=== PATIENT | male | born 1995 | race Caucasian/White ===

== ENCOUNTER → 2019-06-02 14:05 | Outpatient (CLI) | payer OTHER, SELFPAY ==
--- NOTE | 2019-06-02 14:07 | DI.RAD.S_ITS ---
PROCEDURE: XR CERVICAL SPINE 2V OR 3V INDICATIONS: neck pain TECHNIQUE: 3 view(s) of the cervical spine were acquired. COMPARISON: None. FINDINGS: Bones: No fractures or dislocations to the T1 level. The lateral masses of C1 appear intact on the odontoid view. No suspicious bony lesions. Soft tissues: No prevertebral soft tissue swelling. IMPRESSION: Normal for age, no neck pain source is found. Dictated by: Clint Monaco M.D. on 06/02/2019 at 15:48 Approved by: Clint Monaco M.D. on 06/02/2019 at 15:49
--- NOTE | 2019-06-02 14:07 | DI.RAD.S_ITS ---
PROCEDURE: XR SHOULDER RT MIN 2V INDICATIONS: shoulder pain TECHNIQUE: 3 views of the shoulder were acquired. COMPARISON: None. FINDINGS: Bones: No fractures or dislocations. No suspicious bony lesions. Visualized ribs appear intact. Soft tissues: No suspicious soft tissue calcifications. IMPRESSION: No trauma found. Source of shoulder pain is not seen. Dictated by: Clint Monaco M.D. on 06/02/2019 at 15:49 Approved by: Clint Monaco M.D. on 06/02/2019 at 15:49
== END ==
PROVIDERS: PCP Family Medicine; Referring Provider Physical Medicine & Rehabilitation; Visit Provider Physical Medicine & Rehabilitation
DX: M54.2 Cervicalgia (principal); M25.511 Pain in right shoulder; G89.29 Other chronic pain
CPT/HCPCS: 72040; 73030

== ENCOUNTER 2019-07-09 17:53 | Emergency (ER) | payer OTHER, SELFPAY ==
[2019-07-09 17:56] VITALS: BP 133/61; PULSE 77; RESP 14; TEMP 37.4; O2SAT 100
[2019-07-09 18:44] LABS: Influenza A - CEPHEID Flu A NEGATIVE (NEGATIVE); Influenza B - CEPHEID Flu B NEGATIVE (NEGATIVE)
--- NOTE | 2019-07-09 21:31 | ED_ITS ---
HPI - URI/Sore Throat <NANY Fishman - Last Filed: 07/09/19 21:52> General Chief Complaint: Upper Respiratory Symptoms Stated Complaint: sore throat, cough, cold sweats Time Seen by Provider: 07/09/19 19:59 Source: patient Mode of arrival: Ambulatory Limitations: no limitations History of Present Illness HPI Narrative: This is a 24 year male, currently vapes, presents to ED with chu leal complain of sore throat when he woke up this morning which is getting worse with cough, chills, nausea and nasal congestion. Patient denies recent ill exposure, foreign travel, fever, dyspnea, chest pain or short of breath. Patient reports he can hydrate with sore throat without difficulty. Patient does not have chronic medical conditions at this time. Patient has not tried any [id number] medications for his symptoms before coming into ED. Related Data Previous Rx's Medication Instructions Recorded fluoxetine 40 mg capsule 40 mg PO DAILY #90 cap 06/12/18 fluticasone propionate [Flonase 1 spray NASAL Q12H PRN #9.9 ml 07/09/19 Allergy Relief] pseudoephedrine-guaifenesin 1 tab PO BID PRN #14 tab 07/09/19 [Mucinex D Maximum Strength] Allergies Allergy/AdvReac Type Severity Reaction Status Date / Time cephalexin [CEPHALEXIN] Allergy Mild NAUSEA AND Verified 07/09/19 18:01 VOMITING Sulfa (Sulfonamide Allergy Mild NAUSEA AND Verified 07/09/19 18:01 Antibiotics) VOMITING [SULFA (SULFONAMIDE ANTIBIOTICS)] Review of Systems <NANY Fishman - Last Filed: 07/09/19 21:52> Review of Systems Narrative: General: Denies fever, (+) chills, fatigue, malaise, sweats. HEENT: See HPI Respiratory: Denies dyspnea, (+) cough, wheezing, hemoptysis, sputum. Cardiovascular: Denies chest pain, palpitations, orthopnea, edema. Gastrointestinal: Denies (+) nausea, vomiting, abdominal pain, diarrhea, constipation, melena. : Denies dysuria, frequency, incontinence, hematuria, urinary retention. Musculoskeletal: Denies weakness, joint pain or bony pain. Skin: Denies rash, skin lesions, or other. Neurologic: Denies weakness, headache, numbness, change in speech, confusion, seizures, incoordination. Psychiatric: No concerning psychosocial issues. 12-point review of systems is negative except for those stated above. Patient History <NANY Fishman - Last Filed: 07/09/19 21:52> Medical History Periodic vomiting (Chronic 08/2014) Subscapularis insufficiency (Acute) Winged scapula of right side (Acute) Surgical History No pertinent past surgical history (Acute) Family History Unknown No pertinent family history Social History Smoking Status: Current every day smoker Smoking Status: Current every day smoker alcohol intake frequency: 0-2 drinks per day Exam <NANY Fishman - Last Filed: 07/09/19 21:52> Narrative Exam Narrative: GEN: Alert, oriented x 3, well appearing and nourished, and in no acute distress. Head: Normal cephalic, atraumatic. No scalp or temporal tenderness, palpable mass or rash. EYES: Pupils are equal, round, and reactive to light and accommodation. Extraocular muscles are intact bilaterally. There is no subconjunctival hemorrhage, exudate and sclera non-icteric. ENT: Bilateral auditory canals clear and tympanic membranes clear mildly injected and bulging. Hearing grossly intact. Nose without bleeding, purulent discharge or deviation. Tubinates red and edematous. Facial sinuses nontender to palpate. Mucous membrane moist, no mucosal lesion. Throat without erythema, tonsillar hypertrophy or exudate. Uvula in midline, airway patent. Neck: Trachea in midline. No JVD, non-tender without lymphadenopathy. No masses or thyroid megaly. Supple, non-tender and no meningeal signs. CARDIAC: Normal regular rate and rhythm without murmurs, gallops, or rubs. No chest wall tenderness. No peripheral edema, cyanosis or pallor. Capillary refill is less than 2 seconds. RESPIRATORY: Lungs are clear to auscultate bilaterally. No cough, wheezes, rales, or rhonchi. No stridor, respiratory distress, increase work of breathing, or accessary muscle used. ABD: Abdomen soft, nontender and non-distended. No guarding or rebound tenderness to palpate. Bowel sounds are normal in all 4 quadrants. There is no palpable masses or organomegaly. EXT: Full painless ROM of all extremities with no loss of sensation, strength, effusion or edema. SKIN: Warm, dry, normal color for patient. No erythema, lesions or rash over visible areas. BACK: Nontender without deformity or crepitance. No flank tenderness. NEUROLOGICAL: Alert and oriented to place, time and person. Sensation and motor function intact bilaterally. No facial droops, dysphasia. PSYCHIATRIC: Good judgement and reason, without hallucinations, abnormal affect or abnormal behaviors during the examination. Initial Vital Signs Initial Vital Signs: Vital Signs Temperature 99.4 F 07/09/19 17:56 Pulse Rate 77 07/09/19 17:56 Respiratory Rate 14 07/09/19 17:56 Blood Pressure 133/61 07/09/19 17:56 Pulse Oximetry 100 07/09/19 17:56 <Angel Chan DO - Last Filed: 07/09/19 22:41> Initial Vital Signs Initial Vital Signs: Vital Signs Temperature 99.4 F 07/09/19 17:56 Pulse Rate 77 07/09/19 17:56 Respiratory Rate 14 07/09/19 17:56 Blood Pressure 133/61 07/09/19 17:56 Pulse Oximetry 100 07/09/19 17:56 Scores <NANY Fishman - Last Filed: 07/09/19 21:52> GCS Eleanor coma scale eye opening: Spontaneous [place] coma scale verbal response: Orientated [place] coma scale motor response: Obey commands [place] coma scale total score: 15 Course <NANY Fishman - Last Filed: 07/09/19 21:52> Orders Ordered: ED Orders 07/09/19 18:00 Influenza A & B (PCR) Stat Vital Signs Vital signs: Vital Signs - 8 hr 07/09/19 17:56 Temperature 99.4 F Pulse Rate 77 Respiratory Rate 14 Blood Pressure 133/61 Pulse Oximetry 100 <DO Ulices Briseno Last Filed: 07/09/19 22:41> Orders Ordered: ED Orders 07/09/19 18:00 Influenza A & B (PCR) Stat Vital Signs Vital signs: Vital Signs - 8 hr 07/09/19 17:56 Temperature 99.4 F Pulse Rate 77 Respiratory Rate 14 Blood Pressure 133/61 Pulse Oximetry 100 MDM - URI/Sore Throat <KATIA FishmanP - Last Filed: 07/09/19 21:52> Differential Diagnosis Differential diagnosis: Likely upper respiratory infection, otitis media, viral infection, influenza and pharyngitis Medical Records Attestation: I reviewed the patient's medical records. Lab Data Attestation: I reviewed the patient's lab results. Labs: Lab Results 07/09/19 Range/Units 18:00 Influenza A (RT-PCR) Flu a negative (NEGATIVE) Influenza B (RT-PCR) Flu b negative (NEGATIVE) Point of Care Testing Rapid Strep A Negative MDM Narrative Medical decision making narrative: This is a 24-year-old male who presents to ED with upper respiratory symptoms which started this morning when he woke up. Flu test was negative. Strep throat was negative as well. Patient's lung sounds are clear to auscultate in all lobes without increased work of breathing. Patient has not had close contact with people with recent illness, no foreign travel. He has mild increase in temperature of 99.4? with stable vital signs including 100% room air O2 sat. Patient discharged to home with work off note for 2 days and Mucinex DM and Flonase for his symptoms. Patient advised to hydrate well and rest and utilize good hand/cough hygiene. Return precautions were discussed with patient and patient verbalized understanding and agreement with treatment plan. It <Angel Chan DO - Last Filed: 07/09/19 22:41> Lab Data Labs: Lab Results 07/09/19 Range/Units 18:00 Influenza A (RT-PCR) Flu a negative (NEGATIVE) Influenza B (RT-PCR) Flu b negative (NEGATIVE) Point of Care Testing Rapid Strep A Negative Discharge Plan Departure Patient Disposition: Home Clinical Impression: Upper respiratory infection Qualifiers: URI type: unspecified URI Qualified Code(s): J06.9 - Acute upper respiratory infection, unspecified Discharge Date/Time: 07/09/19 21:20 Instructions: DI for Viral Upper Respiratory Infection -- Adult Activity Restrictions/Additional Instructions: You have been diagnosed with [upper respiratory infection. Flu and strep throat tests were negative. You did not have fever, breathing difficulty. Lung sounds were clear in all lobes and oxygenation was 100% in ED.]. What to do: *Take your medications as directed. Please take [id number] Tylenol and or Motrin as needed for discomfort and fever. Please hydrate well and rest. Good hand/cough hygiene will prevent transmitting illness to others. You can take Flonase and Mucinex for symptoms for congestion and cold. This medication has been transmitted to [facility] in [facility]. You can return to work no fever for 24 ho urs or when you are feeling better. *Follow up with your primary care provider in 2-3 days, call for an appointment. Let them know you were seen in the ED and that we asked you to be seen in follow up. *Return to ED if you have any new, worsening, or concerning symptoms, such as [chest pain, breathing difficulty, unable to tolerate fluids, high fever, or any acute concerns]. Prescriptions: New fluticasone propionate [Flonase Allergy Relief] 50 mcg/actuation spray,suspension 1 spray NASAL Q12H PRN (Reason: nasal congestion) Qty: 9.9 RF: 0 pseudoephedrine-guaifenesin [Mucinex D Maximum Strength] 120-1,200 mg tablet extended release 12 hr 1 tab PO BID PRN (Reason: cold symptoms) Qty: 14 RF: 0 No Action fluoxetine 40 mg capsule 40 mg PO DAILY Qty: 90 RF: 1 Referrals: Blake Vicente MD [Primary Care Provider] - Stand Alone Forms: Work Release Note <Angel Chan DO - Last Filed: 07/09/19 22:41> Sign Out Provider Sign Out Attestation: Dr Chan Co-Sign Statement: I was available for consultation during this patient's emergency department visit. This chart is signed by myself for administrative purposes only. I did not have direct contact with this patient during this visit. They were seen independently by the APC.
== END 2019-07-09 21:20 | disposition home or self-care (01) ==
PROVIDERS: Emergency Medicine; Emergency Provider Nurse Practitioner Family; PCP Family Medicine
DX: J06.9 Acute upper respiratory infection, unspecified (principal)
CPT/HCPCS: 87502; 87880; 99281; 99282

== ENCOUNTER → 2020-11-09 09:00 | Outpatient (CLI) | payer OTHER, SELFPAY | PROVIDERS: PCP Family Medicine; Referring Provider Physical Medicine & Rehabilitation; Visit Provider Physical Medicine & Rehabilitation | DX: M95.8 Other specified acquired deformities of musculoskeletal system (principal); M62.9 Disorder of muscle, unspecified | CPT/HCPCS: 95886; 95909 ==

== ENCOUNTER → 2021-02-15 09:12 | Outpatient (CLI) | payer OTHER, SELFPAY ==
--- NOTE | 2021-02-15 | DI.CT.S_ITS ---
PROCEDURE: CT SINUS SCREEN WO CON INDICATIONS: Chronic pansinusitis TECHNIQUE: Noncontrast 3.0 mm axial images acquired from the frontal sinuses to the mid-sella, with coronal and sagittal reformats. For radiation dose reduction, the following was used: automated exposure control, adjustment of mA and/or kV according to patient size. COMPARISON: None. FINDINGS: Image quality: Excellent. Paranasal sinuses are normally aerated. No mucosal thickening in the paranasal sinuses. Small mucous retention cyst noted in the floor of the left maxillary sinus. No air-fluid levels identified in the paranasal sinuses. The ostiomeatal units are patent bilaterally. No osseous thickening, osseous remodeling or osseous erosive changes. 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 No shaheen bullosa or paradoxical turbinates. Nasal septum is midline. IMPRESSION: No paranasal sinus mucosal thickening or air-fluid levels Dictated by: Andree Patel MD, PhD on 02/15/2021 at 11:13 Approved by: Andree Patel MD, PhD on 02/15/2021 at 11:22
== END ==
PROVIDERS: PCP Family Medicine; Referring Provider Otolaryngology; Visit Provider Otolaryngology
DX: R07.0 Pain in throat (principal); R09.82 Postnasal drip; J32.4 Chronic pansinusitis
CPT/HCPCS: 70486

== ENCOUNTER → 2023-04-09 14:09 | Outpatient (CLI) | payer OTHER, SELFPAY ==
--- NOTE | 2023-04-09 14:10 | DI.RAD.S_ITS ---
PROCEDURE: XR THORACIC SPINE 3V INDICATIONS: neck pain, radicular down right arm TECHNIQUE: 3 views of the thoracic spine were acquired. COMPARISON: None. FINDINGS: Bones: No fractures or dislocations. No suspicious bony lesions. 12 pairs of ribs are noted, and appear intact where visualized. Soft tissues: No paravertebral stripe thickening. IMPRESSION: No acute bony abnormality. Dictated by: Rae Salgado M.D. on 04/09/2023 at 21:47 Approved by: Rae Salgado M.D. on 04/09/2023 at 21:48
== END ==
PROVIDERS: PCP Family Medicine; Referring Provider Family Medicine; Visit Provider Family Medicine
DX: M54.2 Cervicalgia (principal); M79.2 Neuralgia and neuritis, unspecified; M54.9 Dorsalgia, unspecified
CPT/HCPCS: 72072

== ENCOUNTER → 2023-05-12 07:33 | Outpatient (CLI) | payer OTHER, SELFPAY ==
--- NOTE | 2023-05-12 07:35 | DI.RAD.S_ITS ---
PROCEDURE: XR CERVICAL SPINE 4V OR 5V INDICATIONS: neck pain TECHNIQUE: 5 views of the cervical spine acquired. COMPARISON: [facility], CR, XR CERVICAL SPINE 2V OR 3V, 06/02/2019, 14:22. FINDINGS: Bones: No fractures or dislocations to the T1 level. Oblique images demonstrate no bony foraminal stenoses. Mild cervical straightening is present. Foramina are patent. Soft tissues: No prevertebral soft tissue swelling. IMPRESSION: Unremarkable exam. Dictated by: Bree Singleton M.D. on 05/12/2023 at 10:38 Approved by: Bree Singleton M.D. on 05/12/2023 at 10:38
== END ==
PROVIDERS: PCP Family Medicine; Referring Provider Anesthesiology; Visit Provider Anesthesiology
DX: M54.2 Cervicalgia (principal)
CPT/HCPCS: 72050

== ENCOUNTER → 2023-11-27 15:27 | Outpatient (CLI) | payer OTHER, SELFPAY ==
--- NOTE | 2023-11-27 15:28 | DI.MRI.S_ITS ---
PROCEDURE: MR THORACIC SPINE WO CON INDICATIONS: Thoracic back pain/radiculopathy TECHNIQUE: Noncontrast sagittal T1 spine echo and T2 fast spin echo, sagittal STIR, and T2 fast spin echo through the thoracic spine. COMPARISON: None. FINDINGS: Image quality: Excellent. Alignment and Curvature: There is normal bony alignment. Bone Marrow: Marrow is of normal overall signal. No acute vertebral body compression fractures. Schmorl node along the inferior endplate of T10. Spinal Cord: Visualized spinal cord is normal in size and signal. Paraspinous Soft Tissues: No paravertebral masses. Miscellaneous: On axial images, central canal and foramina appear widely patent at all scanned levels. IMPRESSION: 1. No evidence for an acute fracture or subluxation. 2. No spinal canal stenosis or foraminal stenosis. Dictated by: Ranjith Crowe M.D. on 11/28/2023 at 12:47 Approved by: Ranjith Crowe M.D. on 11/28/2023 at 12:55
--- NOTE | 2023-11-27 15:28 | DI.MRI.S_ITS ---
PROCEDURE: MR CERVICAL SPINE WO CON INDICATIONS: Cervical radiculopathy TECHNIQUE: Noncontrast sagittal T1 spin echo and T2 fast spin echo, sagittal STIR, foraminal oblique sagittal T2 fast spin echo, and axial gradient echo or T2 fast spin echo through the cervical spine. COMPARISON: None. FINDINGS: Image quality: Excellent. Alignment and Curvature: There is normal bony alignment. Bone Marrow: Marrow demonstrates normal overall signal. Spinal Cord: Visualized spinal cord has normal size and signal. No cerebellar tonsillar herniation. Paraspinous Soft Tissues: No paravertebral masses. Prevertebral soft tissues are normal in thickness. C2-C3: Normal appearance. C3-C4: Normal appearance. C4-C5: Normal appearance. C5-C6: Normal appearance. C6-C7: Normal appearance. C7-T1: Normal appearance. IMPRESSION: Normal study. Dictated by: Ranjith Crowe M.D. on 11/28/2023 at 12:39 Approved by: Ranjith Crowe M.D. on 11/28/2023 at 12:46
== END ==
PROVIDERS: PCP Family Medicine; Referring Provider Anesthesiology; Visit Provider Anesthesiology
DX: M54.14 Radiculopathy, thoracic region (principal); M54.12 Radiculopathy, cervical region; M79.601 Pain in right arm; M54.2 Cervicalgia
CPT/HCPCS: 72141; 72146